=== PATIENT | female | born 1955 | race Caucasian/White ===

== ENCOUNTER 2016-07-02 11:52 | Day surgery (SDC) | payer OTHER ==
[2016-07-02] MEDS ORDERED: LIDOCAINE 1% 2 ML INJ ONE (12:37)
[2016-07-02] MEDS ORDERED: MIDAZOLAM 2 MG/2 ML VIAL ONE (13:20)
[2016-07-02] MEDS ORDERED: PROPOFOL/EMULSION 500 MG/50 ML BOTTLE IV ONE (13:24)
--- NOTE | 2016-07-02 14:26 | GPN ---
[f rep st] PROCEDURE NOTE PROCEDURE: Colonoscopy. PREOPERATIVE DIAGNOSIS: Hematochezia, personal history of colon polyps. POSTOPERATIVE DIAGNOSIS: External hemorrhoids. Otherwise normal colonoscopy to cecum. INDICATIONS: A 61-year-old woman presents today for colonoscopy. She does have a personal history of colon polyps. She has been noticing some episodes of hematochezia, bright red blood per rectum. Presents today for colonoscopy. PHYSICAL EXAMINATION: VITAL SIGNS: Stable. LUNGS: Clear. CARDIAC: Normal S1, S2 without murmur. PERMIT: The procedure was explained to the patient. Risks and benefits of the procedure outlined to the patient. Informed consent was obtained. Preoperative medications per Anesthesia. FINDINGS/PROCEDURE: The patient was placed in the left lateral decubitus position. The CF-180 video colonoscope was passed in the rectum under direct physician to the cecum. The cecum was identified by visualization of the ileocecal valve and appendiceal orifice. Colonic prep was good. The colonoscope was withdrawn with careful inspection of the colonic segments. The cecum, ascending colon, hepatic flexure, transverse colon, splenic flexure, descending colon, sigmoid colon, and rectum were normal. Retroflexed view of the rectum was unremarkable. Patient did have external hemorrhoids. Colonoscope was withdrawn. IMPRESSION: Normal colonoscopy to the cecum, external hemorrhoids. Otherwise unremarkable. RECOMMENDATIONS: High-fiber diet. Repeat recall colonoscopy in 5 years' time. If the patient has any continued problems with hemorrhoidal bleeding, she will call our office for followup. /[id number]/MODL MTDD
== END 2016-07-02 15:30 | disposition home or self-care (01) ==
LOC: FSGY 11:52
PROVIDERS: ATTEND Internal Medicine Gastroenterology
PROC: 0DJD8ZZ Inspection of Lower Intestinal Tract, Via Natural or Artificial Opening Endoscopic (ICD-10-PCS; principal; 2016-07-02 13:00)
DX: K64.4 Residual hemorrhoidal skin tags (principal); Z86.010 Personal history of colon polyps; Z95.5 Presence of coronary angioplasty implant and graft; Z85.3 Personal history of malignant neoplasm of breast; Z88.0 Allergy status to penicillin
CPT/HCPCS: J2250; J2704